=== PATIENT | female | born 1990 | race African-American/Black ===

== ENCOUNTER 2018-02-01 19:31 | Emergency (ER) | payer OTHER ==
[2018-02-01 20:23] VITALS: BP 115/66; PULSE 75; TEMP 98.2; BMI 30.5
--- NOTE | 2018-02-01 20:26 | PDOC ---
Rapid Medical Evaluation Time Seen by Provider: 02/01/18 19:36 Medical Evaluation: I have performed a brief in-person evaluation of this patient. The patient presents with a chief complaint of: atraumatic left wrist pain Pertinent physical exam findings: pain with palpation of left snuffbox. + finklestein test I have ordered the following: nothing. patient is 6 months . Needs thumb splint, ice and rest. Informed the patient there is little to be done for this problem. Gave her a thumb splint and LUISA bandage and instructed her to return to the ER with any worsening or concerning symptoms. The patient verbalizes understanding of all instructions, has no further questions and is awaiting discharge. Discharge Disposition - Diagnosis De Quervain's tenosynovitis, left - Discharge Dispostion Disposition: HOME Condition at time of disposition: Good - Referrals - Patient Instructions Printed Discharge Instructions: DI for Tenosynovitis, How To Perform RICE (Rest , Ice, Compress, Elevate) Additional Instructions: Discharge Instructions: -You have tendonitis of your wrist -Please ice the area to help with swelling and pain -Do not lift anything, including your children if you don't have to -You can take Tylenol for pain -Return to the ER with any worsening or concerning symptoms - Post Discharge Activity
== END 2018-02-01 20:41 | disposition home or self-care (01) ==
LOC: JERFT 19:31
DX: M65.4 Radial styloid tenosynovitis [de Quervain] (principal)
CPT/HCPCS: 99281-25

== ENCOUNTER 2018-02-28 11:12 | Emergency (ER) | payer OTHER ==
[2018-02-28 11:27] VITALS: BMI 31.2
--- NOTE | 2018-02-28 12:20 | PDOC ---
History of Present Illness - History of Present Illness Initial Comments: 02/28/18 12:35 The patient is a 28 year old female, Currently 8 months , with no significant past medical history, who presents to the emergency department with diffuse itching to her entire body starting about 4-3 days ago. She states she was seen at the [facility] at [facility] for the same symptoms where she had lab work done (bilirubin<0.2, AST 14, ALT 10, AlkPhos 89). She denies vaginal bleeding. She denies abdominal cramping. She denies any back pain. She denies taking anything for her itching. She denies chest pain, shortness of breath, headache and dizziness. She denies fever, chills, nausea, vomit, diarrhea and constipation. She denies dysuria, frequency, urgency and hematuria. Allergies: NKDA <Yaquelin Brown - Last Filed: 02/28/18 12:43> <Salomon Bravo - Last Filed: 02/28/18 12:58> - General Chief Complaint: Itching Stated Complaint: RASH Time Seen by Provider: 02/28/18 12:19 Past History <Yaquelin Brown - Last Filed: 02/28/18 12:43> - Past Medical History COPD: No - Suicide/Smoking/Psychosocial Hx Smoking History: Never smoked Have you smoked in the past 12 months: No Information on smoking cessation initiated: No Hx Alcohol Use: No Drug/Substance Use Hx: No Substance Use Type: None <Salomon Bravo - Last Filed: 02/28/18 12:58> - Past Medical History Allergies/Adverse Reactions: Allergies Allergy/AdvReac Type Severity Reaction Status Date / Time No Known Allergies Allergy Verified 02/28/18 11:27 Home Medications: Ambulatory Orders Vit 108/Iron/Folic AC [ One Tablet] 1 each PO DAILY 02/28/18 Review of Systems - Review of Systems Able to Perform ROS?: Yes Comments:: 02/28/18 12:34 CONSTITUTIONAL: No fever, no chills, no fatigue EYES: No visual changes ENT: No ear pain, no sore throat CARDIOVASCULAR: No chest pain, no palpitations RESPIRATORY: No cough, no SOB GI: No abdominal pain, no nausea, no vomiting, no constipation, no diarrhea GENITOURINARY: No dysuria, no frequency, no hematuria MUSKULOSKELETAL: No backpain, no joint pain, no myalgias SKIN: (+) diffuse body itching. No rash NEURO: No headache <Yaquelin Brown - Last Filed: 02/28/18 12:43> *Physical Exam - Vital Signs Last Vital Signs Temp Pulse Resp BP Pulse Ox 97.8 F 83 16 108/68 100 02/28/18 11:25 02/28/18 11:25 02/28/18 11:25 02/28/18 11:25 02/28/18 11:25 - Physical Exam Comments: 02/28/18 12:34 CONSTITUTIONAL: Well-appearing; well-nourished; in no apparent distress HEAD: Normocephalic; atraumatic EYES: PERRL; EOM intact ENMT: External appears normal; normal oropharynx NECK: Supple; non-tender; no cervical lymphadenopathy CARD: Normal S1, S2; no murmurs, rubs, or gallops RESP: Normal chest excursion with respiration; breath sounds clear and equal bilaterally; no wheezes, rhonchi, or rales ABD: (+) gravid abdomen above the umbilicus. Soft, non-distended; non-tender; no palpable organomegaly, no palpable hernias EXT: Normal ROM in all four extremities; non-tender to palpation; distal pulses intact SKIN: Warm, dry, no rash NEURO: No focal neurological deficiencies. <Yaquelin Brown - Last Filed: 02/28/18 12:43> - Vital Signs Last Vital Signs Temp Pulse Resp BP Pulse Ox 97.8 F 83 16 108/68 100 02/28/18 11:25 02/28/18 11:25 02/28/18 11:25 02/28/18 11:25 02/28/18 11:25 <Salomon Bravo - Last Filed: 02/28/18 12:58> Medical Decision Making - Medical Decision Making 02/28/18 12:39 Dr. Waters was paged at this time requesting a call back for doctor to doctor consult. Case discussed with Dr. Waters at 12:43 <Yaquelin Brown - Last Filed: 02/28/18 12:43> - Medical Decision Making 02/28/18 12:56 Patient is a 28-year-old female, at 8 months gestation by LMP who presents with generalized pruritus. Patient is well-appearing without fever, abdominal pain or lower extremity edema. Patient denies headache. Patient had been seen at [facility] and underwent laboratory evaluation which shows normal LFTs with pending bile salts. I discussed the case with Dr. Waters. We'll administer Benadryl , we'll advise Benadryl until bile salt results are available. Patient will be advised to follow-up as needed. <Salomon Bravo - Last Filed: 02/28/18 12:58> *DC/Admit/Observation/Transfer - Attestations Scribe Attestion: 02/28/18 12:38 Documentation prepared by Yaquelin Brown, acting as medical physics professor for Salomon Bravo MD <Yaquelin Brown - Last Filed: 02/28/18 12:43> - Attestations Physician Attestion: 02/28/18 12:55 The documentation was prepared by the scribe under my direct supervision. I have reviewed the documentation which correctly represents the findings, medical decision-making and critical action taken by me. <Salomon Bravo - Last Filed: 02/28/18 12:58> Diagnosis at time of Disposition: Generalized pruritus - Discharge Dispostion Disposition: HOME Condition at time of disposition: Stable - Referrals Referrals: Kaycee Waters MD [Staff Physician] - - Patient Instructions Printed Discharge Instructions: DI for Itching Additional Instructions: Take Benadryl-25 mg orally every 4 hours as needed for severe itching. Follow- up with [facility] for additional bile salt results. Return immediately for fever, abdominal pain, leg swelling, headache.
[2018-02-28] MEDS ORDERED: diphenhydrAMINE HCL 25 MG CAPSULE (FP) PO ONE ×2 (12:37→12:53)
[2018-02-28 13:13] VITALS: BP 104/67; PULSE 81; TEMP 98.1
== END 2018-02-28 13:13 | disposition home or self-care (01) ==
LOC: JER 11:12
DX: O26.893 Other specified pregnancy related conditions, third trimester (principal); Z3A.32 32 weeks gestation of pregnancy; L29.9 Pruritus, unspecified
CPT/HCPCS: 99283-25

== ENCOUNTER 2018-03-21 13:17 | Emergency (ER) | payer OTHER ==
[2018-03-21 13:27] VITALS: BP 109/59; PULSE 79; TEMP 98.4; BMI 29.2
[2018-03-21] MEDS ORDERED: ACETAMINOPHEN 325 MG TABLET (FP) PO ONE (13:48)
--- NOTE | 2018-03-21 13:52 | PDOC ---
History of Present Illness - General Chief Complaint: Head/Neck problem Stated Complaint: NECK PAIN Time Seen by Provider: 03/21/18 13:32 - History of Present Illness Initial Comments: 28-year-old 36-week-old gravid female presents for evaluation of left-sided neck pain. She denies any precipitating trauma. She describes the pain as sharp and exacerbated with motion of the neck relieved with rest and free of radiation. No problems like this in the past 03/21/18 13:47 Past History - Past Medical History Allergies/Adverse Reactions: Allergies Allergy/AdvReac Type Severity Reaction Status Date / Time No Known Allergies Allergy Verified 03/21/18 13:23 Home Medications: Ambulatory Orders NK [No Known Home Medication] 03/21/18 COPD: No Other medical history: denies. - Reproductive History (#): 3 Para: 2 Cervical CA: No Dysfunctional Uterine Bleeding: No Ectopic : No Endometrial CA: No Polycystic Ovaries: No Therapeutic (s) & number: No Tubal Ligation: No - Suicide/Smoking/Psychosocial Hx Smoking History: Never smoked Have you smoked in the past 12 months: No Hx Alcohol Use: No Drug/Substance Use Hx: No Substance Use Type: None Review of Systems - Review of Systems Comments:: GENERAL/CONSTITUTIONAL: [No fever or chills. No weakness. No weight change.] HEAD, EYES, EARS, NOSE AND THROAT: [No change in vision. No ear pain or discharge. No sore throat.] CARDIOVASCULAR: [No chest pain or shortness of breath.] RESPIRATORY: [No cough, wheezing, or hemoptysis.] GASTROINTESTINAL: [No nausea, vomiting, diarrhea or constipation. No rectal bleeding.] GENITOURINARY: [No dysuria, frequency, or change in urination.] MUSCULOSKELETAL: [No joint or muscle swelling or pain. + neck PAIN, NO back pain.] SKIN AND BREASTS: [No rash or easy bruising.] NEUROLOGIC: [No headache, vertigo, loss of consciousness, or loss of sensation.] PSYCHIATRIC: [No depression or anxiety.] ENDOCRINE: [No increased thirst. No abnormal weight change.] HEMATOLOGIC/LYMPHATIC: [No anemia, easy bleeding, or history of blood clots.] ALLERGIC/IMMUNOLOGIC: [No hives or skin allergy. No latex allergy.] 03/21/18 13:49 *Physical Exam - Vital Signs Last Vital Signs Temp Pulse Resp BP Pulse Ox 98.4 F 79 15 109/59 100 03/21/18 13:23 03/21/18 13:23 03/21/18 13:23 03/21/18 13:23 03/21/18 13:23 - Physical Exam Comments: Cervical spine skin color and temperature are normal. There is DECRASED painful range of motion. MILD LEFT SIDED palpable spasm. Biceps triceps and brachial radialis reflexes are 2+ and symmetric bilaterally. There is 5 out of 5 strength and thumb extension abduction and wrist flexion and extension elbow flexion and extension. 5 out of 5 strength in deltoid. Negative Henny sign. Spurling maneuver is negative bilaterally. There are no gross sensory motor deficits. Neurovascularly intact. 03/21/18 13:49 Medical Decision Making - Medical Decision Making Differential includes torticollis or cervical spine strain. 03/21/18 13:50 *DC/Admit/Observation/Transfer Diagnosis at time of Disposition: Torticollis, acute, Strain, cervical - Discharge Dispostion Disposition: HOME Condition at time of disposition: Stable Decision to Admit order: No - Referrals Referrals: Quang Clarke MD [Staff Physician] - - Patient Instructions Printed Discharge Instructions: DI for Cervical Muscle Strain, Torticollis, DI for Torticollis Additional Instructions: Return to the emergency room if symptoms worsen or go on resolve prior to follow up with orthopedic surgery. Due to her can only take Tylenol for pain. - Post Discharge Activity
[2018-03-21] MEDS ORDERED: ACETAMINOPHEN 325 MG TABLET (FP) ONE (13:53)
== END 2018-03-21 14:04 | disposition home or self-care (01) ==
LOC: JERFT 13:17
DX: G24.3 Spasmodic torticollis (principal)
CPT/HCPCS: 99281-25

== ENCOUNTER 2018-04-08 10:00 | Inpatient (IN) | payer OTHER ==
[2018-04-08] MEDS ORDERED: DINOPROSTONE 10 MG VAGINAL SUPPOSITORY VG ONE (10:40)
[2018-04-08 10:42] VITALS: BMI 27.4
[2018-04-08] MEDS ORDERED: SODIUM PHOSPHATE/NA BIPHOS 133 ML ENEMA PR ONE (10:43)
[2018-04-08] MEDS ORDERED: BUTORPHANOL TARTRATE 1 MG/ML VIAL IVPB ONE (10:45)
[2018-04-08] MEDS ORDERED: PROMETHAZINE HCL 25 MG/1 ML VIAL IVPUSH ONE (10:45)
[2018-04-08] MEDS ORDERED: DEXTROSE 5%-LACTATED RINGERS 1,000 ML IV SCH (10:45)
--- NOTE | 2018-04-08 10:53 | HP ---
Past Medical History - Primary Care Physician PCP:: Kaycee Waters - Admission Chief Complaint: 28 yrs , 40 .4 weeks IUP by EDC 04/04/18 ,is admitted for induction of labor . NST 04/07/18 cat-1 , Bpp 06/20 , EFW 3950 gm, afi12.4 cm , vx History of Present Illness: care at 2, park care at 29 wks transferred from [place] .wt gain 13 lbs In transfer records LMP mentioned is 06/20/17 & EDC as 03/25/18 . 10/20/17 O pos, hbsag neg, Rpr nr, Quantiferon neg,, Gct 71, Hgba1c 5.0 03/14/18 GBS neg , Hiv neg. 02/06/18 Zika virus testing neg 02/20/18 LFT were done alt 10, ast 14, bile acids -5, bile salts neg neg , Plt on 03/14/18-95, , repeat plt on 03/20/18 110h/h 10.5/32.1 . 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 Weeks Gestation by Dates: 40.4 ...EDC by Dates: 04/04/18 ...EDC by Sono: 04/04/18 Infectious Disease: No: HIV, STD's, Tuberculosis Psych: No: Addictions, Anxiety, Bipolar - Past Surgical History Past Surgical History: Yes: None Hx Myomectomy: No Hx Transabdominal Cerclage: No - Smoking History Smoking history: Never smoked Have you smoked in the past 12 months: No - Alcohol/Substance Use Hx Alcohol Use: No - Social History History of Recent Travel: Yes (travel from [facility] ) Home Medications - Allergies Allergies/Adverse Reactions: Allergies Allergy/AdvReac Type Severity Reaction Status Date / Time No Known Allergies Allergy Verified 04/07/18 12:54 - Home Medications Home Medications: Ambulatory Orders Diphenhydramine HCl [Benadryl -] 25 mg PO Q6H 04/07/18 Pnv No.95/Ferrous Fum/Folic AC [ Vitamin Tablet] 1 each PO DAILY Tablet 1 tablet PO DAILY 04/08/18 Physical Exam - Maternity Vital Signs: Vital Signs Temperature 98.3 F 04/08/18 10:31 Pulse Rate 84 04/08/18 10:31 Respiratory Rate 18 04/08/18 10:31 Blood Pressure 105/63 04/08/18 10:31 O2 Sat by Pulse Oximetry (%) Selected Entries 04/08/18 10:31 Weight 165 lb Constitutional: Yes: Well Nourished Eyes: Yes: WNL HENT: Yes: WNL Neck: Yes: WNL Cardiovascular: Yes: WNL Lungs: Clear to auscultation Breast(s): Yes: WNL - Abdominal Exam/OB Fundal Height: 40 Number of Fetuses: Single Presentation: Vertex Contractions: No Intensity: Mild/Mod Monitor Mode: External Heart Rate (range): 140 Heart Rate Location: [facility] Category: I Accelerations: Uniform Decelerations: None - Vaginal Exam/OB Vaginal Bleediing: No Speculum Exam: No Dilatation (cm): 1-2 Effacement (%): 60 Amniotic Membrane Status: Intact Presentation: Vertex/Position Station: -3 - Physical Exam Musculoskeletal: Yes: WNL Extremities: Yes: WNL. No: Calf Tenderness Edema: Yes Edema: LLE: 1+, RLE: 1+ Integumentary: Yes: WNL Deep Tendon Reflex Grade: Normal +2 ...Motor Strength: WNL Psychiatric: Yes: WNL, Alert, Oriented - Labs Lab Results: Laboratory Tests 04/08/18 04/08/18 04/08/18 11:10 11:10 11:10 WBC 6.2 Hgb 10.5 L Hct 31.9 L Plt Count 120 L Neutrophils % 65.7 Lymphocytes % 23.0 Monocytes % 7.5 PT with INR 12.60 INR 1.12 PTT (Actin FS) 27.2 Sodium 138 Potassium 3.6 Chloride 106 Carbon Dioxide 24 BUN 8 Creatinine 0.5 L Random Glucose 73 L Blood Type Antibody Screen 04/08/18 04/08/18 11:10 12:36 WBC Hgb Hct Plt Count Neutrophils % Lymphocytes % Monocytes % PT with INR INR PTT (Actin FS) Sodium Potassium Chloride Carbon Dioxide BUN Creatinine Random Glucose Blood Type O POSITIVE Antibody Screen Negative Problem List - Problems (1) Post term over 40 weeks Code(s): O48.0 - POST-TERM (2) Elective induction of labor planned Code(s): XGU0644 - Assessment/Plan 28 yrs , 40.4 weeks iup for induction of labor. GBS neg Cervidil inserted at 10.40 AM Plan trial vaginal delivery
[2018-04-08 11:29] LABS: BASO % 0.4 % (0-2.0); EOS % 3.4 % (0-4.5); HEMATOCRIT 31.9 % (32.4-45.2); HEMOGLOBIN 10.5 GM/dL (10.7-15.3); MCH 26.7 pg (25.7-33.7); MEAN CELL VOLUME 80.8 fl (80-96); MEAN PLT VOLUME 9.6 fl (7.5-11.1); MONO % 7.5 % (3.8-10.2); NEUT % 65.7 % (42.8-82.8); PLATELET COUNT 120 K/MM3 (134-434); RBC 3.94 M/mm3 (3.60-5.2); RDW 14.2 % (11.6-15.6); WHITE BLOOD COUNT 6.2 K/mm3 (4.0-10.0)
[2018-04-08 11:42] LABS: INR 1.12 (0.82-1.09); PROTHROMBIN TIME (PATIENT) 12.6 SEC (9.7-13.0)
[2018-04-08 11:45] LABS: ACTIVATED PTT 27.2 SECONDS (26.9-34.4)
[2018-04-08 11:49] LABS: ANION GAP 8 (8-16); BLOOD UREA NITROGEN 8 mg/dL (7-18); CHLORIDE 106 mmol/L (98-107); CO2 24 mmol/L (21-32); CREATININE 0.5 mg/dL (0.55-1.02); GLUCOSE,RANDOM 73 mg/dL (74-106); POTASSIUM 3.6 mmol/L (3.5-5.1); SODIUM 138 mmol/L (136-145)
--- NOTE | 2018-04-08 22:32 | PN ---
Progress Note (short form) - Note Progress Note: 10.15 PM cervidil removed uc are irregular q 3-5-7 min mild to moderate. FHR cat-1 requests for pain relief , epidural . cervidil removed Selected Entries 04/08/18 21:00 Pulse Rate 92 H Blood Pressure 122/74 Plan fleets enema shower epidural pitocin augmentaion Problem List - Problems (1) Post term over 40 weeks Code(s): O48.0 - POST-TERM (2) Elective induction of labor planned Code(s): GAP4181 -
[2018-04-08] MEDS ORDERED: ELECTROLYTE-148 SOLN 1,000 ML IV SCH (22:45)
[2018-04-08] MEDS ORDERED: OXYTOCIN 30 UNITS in 0.9% NS 30 UNIT/500 ML INFUS.BAG IVPB SCH (22:45)
--- NOTE | 2018-04-08 23:15 | PN ---
Progress Note, Labor Vaginal Exam #1 Labor Exam Date: 04/08/18 Labor Exam Time: 23:00 Heart Rate (range): 140 Dilatation: 4-5 Effacement (%): 80 Amniotic Membrane Status: Ruptured (AROM clear small amount, scalp electrode applied) Presentation: Vertex/Position Station: -3 (-3/-2) Remarks: FHR cat-1 uc 2-4 min Selected Entries 04/08/18 21:00 Pulse Rate 92 H Blood Pressure 122/74 Blood Pressure 90 Mean 23.30 epidural analgesia was given Vaginal Exam #2 Labor Exam Date: 04/09/18 Labor Exam Time: 01:30 Heart Rate (range): 140 Dilatation: 10 Effacement (%): 100 Amniotic Membrane Status: Ruptured Presentation: Vertex/Position Station: +3 Remarks: fhr cat-1 uc 2 min Pitocin augmentation at 11.20 am pt pushing Selected Entries 04/09/18 01:35 Pulse Rate 84 Blood Pressure 108/63
[2018-04-08] MEDS ORDERED: NALOXONE HCL 0.4 MG/ML VIAL IVPUSH PRN (23:38)
[2018-04-08] MEDS ORDERED: FENTANYL/BUPIVACAINE/NS/PF - PCEA - 50 ML DISP.SYRIN EP SCH (23:45)
[2018-04-09] MEDS: OXYTOCIN 20 UNITS in 0.9% NS 20 UNIT/1,000 ML INFUS.BAG IV SCH ×2 (01:45→12:00)
[2018-04-09] MEDS ORDERED: BENZOCAINE 28 GM HEMORRHOIDAL OINTMENT TP PRN (02:04)
[2018-04-09] MEDS ORDERED: WITCH HAZEL 50% (TUCKS) 40 PAD/JAR PAD TP PRN (02:04)
[2018-04-09] MEDS ORDERED: BISACODYL 10 MG SUPP.RECT RC PRN (02:04)
[2018-04-09] MEDS ORDERED: BENZOCAINE 20% 57 GM BOTTLE TP PRN (02:04)
[2018-04-09] MEDS ORDERED: oxyCODONE HCL 5 MG TABLET PO PRN (02:04)
[2018-04-09] MEDS ORDERED: METHYLERGONOVINE MALEATE 0.2 MG/1 ML AMP IM PRN (02:04)
--- NOTE | 2018-04-09 02:28 | PN ---
Delivery - Delivery Vaginal Delivery: No Problems, Spontaneous (baby delievered Vx , Sarah position, immediate oral & nasal suction was done.) Type of Anesthesia: Epidural Episiotomy/Laceration: Perineal Extension/lac (1st degree perineal laceration sutured with chr catgut #2/0), 1st degree EBL (cc): 300 Delivery, Single - Stages of Labor Date 1st Stage Initiatied: 04/08/18 Time 1st Stage Initiated: 17:30 Date 2nd Stage Initiated: 04/09/18 Time 2nd Stage Initiated: 01:30 Date of Delivery: 04/09/18 Time of Delivery: 01:41 Date Placenta Delivered: 04/09/18 Time Placenta Delivered: 01:45 Placenta: Yes: Spontaneous, Uterine Exploration - Condition of Infant 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 gbs neg pnc transferred from the clinic in [place] to [address] [place] [address] . 04/08/18 Cervidil was inserted for induction Intrapartum course uneventful
[2018-04-09] MEDS: IBUPROFEN 600 MG TABLET (FP) PO PRN ×4 (05:48→21:41)
[2018-04-09] MEDS: ACETAMINOPHEN 325 MG TABLET (FP) PO PRN ×4 (05:49→21:40)
[2018-04-09] MEDS: FERROUS SO4 325 MG TABLET (FP) PO SCH ×2 (08:51→17:10)
[2018-04-09] MEDS: PRENATAL VITAMINS W/ FOLIC ACID TABLET (FP) PO SCH (09:10)
--- NOTE | 2018-04-10 07:51 | PN ---
Post Progress Note - Subjective Subjective: cramps Post Day: 1 Type of Delivery: Vital Signs: Vital Signs Temperature 98.1 F 04/09/18 21:00 Pulse Rate 62 04/09/18 21:00 Respiratory Rate 20 04/09/18 21:00 Blood Pressure 91/47 04/09/18 21:00 O2 Sat by Pulse Oximetry (%) 99 04/09/18 02:45 Breast Exam: Yes: Soft, Other (Bf ). No: Engorged Uterus: Yes: Fundus Firm, Fundus below umbilicus Lochia: Yes: Rubra Lochia, amount: Moderate Extremities: Yes: Calves non-tender Perineum: Yes: Laceration (1st degree healing ) Activity: Ambulating - Labs Labs: CBC WBC 6.2 K/mm3 (4.0-10.0) 04/08/18 11:10 RBC 3.94 M/mm3 (3.60-5.2) 04/08/18 11:10 Hgb 10.5 GM/dL (10.7-15.3) L 04/08/18 11:10 Hct 31.9 % (32.4-45.2) L 04/08/18 11:10 MCV 80.8 fl (80-96) 04/08/18 11:10 MCH 26.7 pg (25.7-33.7) 04/08/18 11:10 MCHC 33.0 g/dl (32.0-36.0) 04/08/18 11:10 RDW 14.2 % (11.6-15.6) 04/08/18 11:10 Plt Count 120 K/MM3 (134-434) L 04/08/18 11:10 MPV 9.6 fl (7.5-11.1) 04/08/18 11:10 Neutrophils % 65.7 % (42.8-82.8) 04/08/18 11:10 Lymphocytes % 23.0 % (8-40) 04/08/18 11:10 Monocytes % 7.5 % (3.8-10.2) 04/08/18 11:10 Eosinophils % 3.4 % (0-4.5) 04/08/18 11:10 Basophils % 0.4 % (0-2.0) 04/08/18 11:10 Nucleated RBC % 0 % (0-0) 04/08/18 11:10 Problem List - Problems (1) Post term over 40 weeks Code(s): O48.0 - POST-TERM (2) Elective induction of labor planned Code(s): [id number] - Assessment/Plan stable ct pp care
[2018-04-10 08:01] LABS: BASO % 0.6 % (0-2.0); HEMATOCRIT 30.7 % (32.4-45.2); HEMOGLOBIN 10.2 GM/dL (10.7-15.3); LYMPH % 24.7 % (8-40); MCHC 33.3 g/dl (32.0-36.0); MEAN CELL VOLUME 81.1 fl (80-96); MEAN PLT VOLUME 9.6 fl (7.5-11.1); MONO % 5.7 % (3.8-10.2); PLATELET COUNT 104 K/MM3 (134-434); RBC 3.79 M/mm3 (3.60-5.2); RDW 14.4 % (11.6-15.6); WHITE BLOOD COUNT 7.8 K/mm3 (4.0-10.0)
[2018-04-10] MEDS: ACETAMINOPHEN 325 MG TABLET (FP) PO PRN ×2 (08:15→18:00)
[2018-04-10] MEDS: IBUPROFEN 600 MG TABLET (FP) PO PRN ×2 (08:15→18:01)
[2018-04-10] MEDS: FERROUS SO4 325 MG TABLET (FP) PO SCH ×2 (08:15→18:00)
[2018-04-10] MEDS: PRENATAL VITAMINS W/ FOLIC ACID TABLET (FP) PO SCH (09:16)
[2018-04-10] MEDS ORDERED: SENNOSIDES/DOCUSATE COMBO (SENNA PLUS) TABLET (UD) PO PRN (22:00)
[2018-04-11] MEDS: FERROUS SO4 325 MG TABLET (FP) PO SCH (08:21)
[2018-04-11] MEDS: IBUPROFEN 600 MG TABLET (FP) PO PRN (08:21)
[2018-04-11] MEDS: ACETAMINOPHEN 325 MG TABLET (FP) PO PRN (08:22)
--- NOTE | 2018-04-11 08:57 | DS ---
Physical Exam-[facility] Vital Signs: Vital Signs Temperature 98.4 F 04/10/18 20:24 Pulse Rate 65 04/10/18 20:24 Respiratory Rate 20 04/10/18 20:24 Blood Pressure 124/62 04/10/18 20:24 O2 Sat by Pulse Oximetry (%) 99 04/09/18 02:45 Constitutional: Yes: Well Nourished Eyes: Yes: WNL HENT: Yes: WNL Neck: Yes: WNL Cardiovascular: Yes: WNL Respiratory: Yes: WNL Gastrointestinal: Yes: WNL Renal/: Yes: WNL ....Post : Yes: Uterus firm, Uterus non-tender, Moderate lochia rubra ( perineum 1st degree laceration healed) Breast(s): Yes: WNL (BF, breast not engorged) Musculoskeletal: Yes: WNL Extremities: Yes: WNL Edema: Yes Integumentary: Yes: WNL Neurological: Yes: WNL ...Motor Strength: WNL Psychiatric: Yes: WNL Labs: CBC, BMP 04/10/18 07:30 04/08/18 11:10 Delivery - Delivery Vaginal Delivery: No Problems, Spontaneous (baby delievered Vx , [place] position, immediate oral & nasal suction was done.) Type of Anesthesia: Epidural Episiotomy/Laceration: Perineal Extension/lac (1st degree perineal laceration sutured with chr catgut #2/0), 1st degree EBL (cc): 300 Delivery, Single - Stages of Labor Date 1st Stage Initiatied: 04/08/18 Time 1st Stage Initiated: 17:30 Date 2nd Stage Initiated: 04/09/18 Time 2nd Stage Initiated: 01:30 Date of Delivery: 04/09/18 Time of Delivery: 01:41 Time Placenta Delivered: 01:45 Placenta: Yes: Spontaneous, Uterine Exploration - Condition of 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 gbs neg pnc transferred from the clinic in [place] to [address] [place] [address] . 04/08/18 Cervidil was inserted for induction Intrapartum course uneventful pp course uneventful anemia counselled discharge today Discharge Summary Reason For Visit: LABOR Current Active Problems Anemia (Acute) Elective induction of labor planned (Acute) Normal spontaneous vaginal delivery (Acute) Post term over 40 weeks (Acute) Condition: Stable - Instructions Diet, Activity, Other Instructions: Post Instructions DIET: Continue good diet high in protein, calcium, and iron rich foods. Drink at least eight (8) glasses of water daily in addition to other fluids. ___ Regular diet MEDICATIONS: Continue vitamins and iron as previously directed. Motrin and Tylenol may be taken for minor discomfort. ACTIVITY: Mild to moderate exercise may be started in two (2) weeks. Take frequent rest periods. Resume normal activity after six (6) week check up. WOUND CARE OF OPERATIVE SITE: Continue use of perineal bottle until vaginal discharge stops. Keep area clean. Shower daily. Keep abdominal wound dry. Report any drainage or redness to physician. Tub baths, tampons and douches are not permitted for [address] Breast feeding & or Bottle feeding BREAST CARE: (For those that are not breast feeding): If engorgement occurs: Wear tight fitting bra. Take Tylenol or Motrin for pain. Apply cold packs (ice in bags to each breast ) FAMILY PLANNING: There are many control alternatives to pursue and they should be discussed at your first office visit. You may resume sexual activity after your six (6) week check up. (Remember, breast feeding is not a contraceptive) NEXT PHYSICIAN APPOINTMENT: Be certain to call for a six (6) week appointment, unless otherwise directed. Call Clinic or got to Emergency Dept if you have any of the following: Heavy vaginal bleeding Painful urination Leg pain Unusual odor noted to vaginal bleeding High fever Red streaking noted on breast Referrals: Kaycee Waters MD [Staff Physician] - Disposition: HOME - Home Medications Comprehensive Discharge Medication List: Ambulatory Orders Pnv No.95/Ferrous Fum/Folic AC [ Vitamin Tablet] 1 each PO DAILY Tablet 1 tablet PO DAILY 04/08/18 Acetaminophen [Tylenol .Regular Strength -] 650 mg PO Q3H PRN tablet 04/10/18 Ferrous Sulfate [Feosol] 325 mg PO BIDWM #60 ud 04/10/18 Ibuprofen [Motrin -] 200 mg PO Q4H PRN tablet 04/10/18 Vitamins (Sjr) - 1 tab PO DAILY #30 tablet 04/10/18
[2018-04-11 09:42] VITALS: BP 109/68; PULSE 77; TEMP 98.5
[2018-04-11] MEDS: PRENATAL VITAMINS W/ FOLIC ACID TABLET (FP) PO SCH (10:53)
== END 2018-04-11 13:00 | disposition home or self-care (01) | DRG 560 ==
LOC: JLDR 10:00 → J3W 04-09 04:00
PROVIDERS: ADMIT Obstetrics & Gynecology; ATTEND Obstetrics & Gynecology
PROC: 3E0P7VZ Introduction of Hormone into Female Reproductive, Via Natural or Artificial Opening (ICD-10-PCS; 2018-04-08)
PROC: 10E0XZZ Delivery of Products of Conception, External Approach (ICD-10-PCS; principal; 2018-04-09)
PROC: 0W8NXZZ Division of Female Perineum, External Approach (ICD-10-PCS; 2018-04-09)
PROC: 0HQ9XZZ Repair Perineum Skin, External Approach (ICD-10-PCS; 2018-04-09)
DX: O70.0 First degree perineal laceration during delivery (principal); O48.0 Post-term pregnancy; O99.02 Anemia complicating childbirth; Z3A.40 40 weeks gestation of pregnancy; Z37.0 Single live birth
CPT/HCPCS: 36415; 59409; 80048; 85025; 85610; 85730; 86593; 86850; 86900; 86901

== ENCOUNTER 2019-01-01 12:27 | Emergency (ER) | payer OTHER ==
[2019-01-01 13:00] VITALS: BMI 22.8
--- NOTE | 2019-01-01 13:08 | PDOC ---
History of Present Illness - General History Source: Patient <Adrien Field - Last Filed: 01/01/19 15:04> <Sandy Kirk - Last Filed: 01/01/19 16:04> - General Chief Complaint: Back Pain Stated Complaint: FALL Time Seen by Provider: 01/01/19 12:58 Past History - Past Medical History Asthma: No Cancer: No Cardiac Disorders: No COPD: No Diabetes: No HTN: No Seizures: No Thyroid Disease: No - Reproductive History (#): 3 Para: 2 Cervical CA: No Dysfunctional Uterine Bleeding: No Ectopic : No Endometrial CA: No Polycystic Ovaries: No Therapeutic (s) & number: No Tubal Ligation: No - Suicide/Smoking/Psychosocial Hx Smoking History: Never smoked Have you smoked in the past 12 months: No Hx Alcohol Use: No Drug/Substance Use Hx: No Substance Use Type: None Hx Substance Use Treatment: No <Adrien Field Last Filed: 01/01/19 15:04> <Sandy Kirk - Last Filed: 01/01/19 16:04> - Past Medical History Allergies/Adverse Reactions: Allergies Allergy/AdvReac Type Severity Reaction Status Date / Time No Known Allergies Allergy Verified 01/01/19 12:44 Home Medications: Ambulatory Orders Amoxicillin - [Amoxicillin 875mg Tablet -] 875 mg PO BID #14 tab 01/01/19 Review of Systems - Review of Systems Constitutional: Yes: Chills, Fever, Malaise HEENTM: Yes: Throat Pain Respiratory: No: Cough, Shortness of Breath ABD/GI: No: Diarrhea, Nausea, Vomiting, Abdominal cramping : No: Dysuria Musculoskeletal: Yes: Back Pain <Adrien Field Last Filed: 01/01/19 15:04> *Physical Exam - Vital Signs Last Vital Signs Temp Pulse Resp BP Pulse Ox 102.1 F H 114 H 20 98/60 99 01/01/19 12:45 01/01/19 12:45 01/01/19 12:45 01/01/19 12:45 01/01/19 12:45 - Physical Exam General Appearance: Yes: Appropriately Dressed. No: Apparent Distress HEENT: positive: Normal ENT Inspection, Pharynx Normal. negative: Scleral Icterus (R), Scleral Icterus (L) Neck: positive: Supple. negative: Lymphadenopathy (R), Lymphadenopathy (L) Respiratory/Chest: positive: Lungs Clear, Normal Breath Sounds. negative: Respiratory Distress Cardiovascular: positive: S1, S2, Tachycardia Gastrointestinal/Abdominal: positive: Soft. negative: Tender Musculoskeletal: negative: CVA Tenderness, Vertebral Tenderness Extremity: positive: Normal Inspection Integumentary: positive: Dry, Warm Neurologic: positive: Fully Oriented, Alert, Normal Mood/Affect <Adrien Field - Last Filed: 01/01/19 15:04> - Vital Signs Last Vital Signs Temp Pulse Resp BP Pulse Ox 98.6 F 92 H 17 105/62 99 01/01/19 15:05 01/01/19 15:05 01/01/19 15:05 01/01/19 15:05 01/01/19 15:05 <Sandy Kirk - Last Filed: 01/01/19 16:04> Moderate Sedation - Procedure Monitoring Vital Signs: Procedure Monitoring Vital Signs Temperature 102.1 F H 01/01/19 12:45 Pulse Rate 114 H 01/01/19 12:45 Respiratory Rate 20 01/01/19 12:45 Blood Pressure 98/60 01/01/19 12:45 O2 Sat by Pulse Oximetry (%) 99 01/01/19 12:45 <Adrien Field Last Filed: 01/01/19 15:04> - Procedure Monitoring Vital Signs: Procedure Monitoring Vital Signs Temperature 98.6 F 01/01/19 15:05 Pulse Rate 92 H 01/01/19 15:05 Respiratory Rate 17 01/01/19 15:05 Blood Pressure 105/62 01/01/19 15:05 O2 Sat by Pulse Oximetry (%) 99 01/01/19 15:05 <Sandy Kirk - Last Filed: 01/01/19 16:04> ED Treatment Course - LABORATORY CBC & Chemistry Diagram: 01/01/19 13:27 01/01/19 13:27 <Adrien Field - Last Filed: 01/01/19 15:04> - LABORATORY CBC & Chemistry Diagram: 01/01/19 13:27 01/01/19 13:27 - ADDITIONAL ORDERS Additional order review: Laboratory Results 01/01/19 01/01/19 13:27 13:27 Sodium 139 Potassium 4.0 Chloride 103 Carbon Dioxide 29 Anion Gap 7 L BUN 10 Creatinine 0.7 Creat Clearance w eGFR > 60 Random Glucose 88 Calcium 8.8 Total Bilirubin 0.3 AST 19 ALT 30 Alkaline Phosphatase 106 Total Protein 8.3 H Albumin 4.3 Serum , Qual Negative 01/01/19 13:27 RBC 5.02 MCV 78.7 L MCHC 33.7 RDW 14.0 MPV 10.4 Neutrophils % 85.4 H D Lymphocytes % 8.2 D Monocytes % 4.6 Eosinophils % 1.4 Basophils % 0.4 - Medications Given in the ED: ED Medications Discontinued Medications Generic Name Dose Route Start Last Admin Trade Name Freq PRN Reason Stop Dose Admin Acetaminophen 650 mg 01/01/19 13:19 01/01/19 13:30 Tylenol - PO 01/01/19 13:20 650 mg ONCE ONE Administration Amoxicillin 500 mg 01/01/19 14:08 01/01/19 15:00 Amoxicillin - PO 01/01/19 14:09 500 mg ONCE ONE Administration Sodium Chloride 1,000 mls @ 1,000 mls/hr 01/01/19 13:19 01/01/19 13:30 Normal Saline - IV 01/01/19 14:18 1,000 mls/hr ASDIR STA Administration <Sandy Kirk - Last Filed: 01/01/19 16:04> Medical Decision Making - Medical Decision Making 01/01/19 13:08 28 yo F, here w/ fever w/ body aches, sneezing and sore throat x 2 days. No neck pain, LOPEZ, photophobia, rash, cough, SOB, CP, change in BM, dysuria, abd pain, n/v. No sick contacts or recent travel. Pt also reports ongoing back pain s/p minor fall 1 week ago. Seen by her pmd and prescribed pain meds w/ no relief per pt. Requesting xrays spine. See exam Viral syndrome, r/o flu Elsa uncomfortable w/ temp of 102 F w/ tachy to 114, rest of exam unremarkable -tylenol -IVF -labs -reassess 01/01/19 14:43 + strep. Flu/labs wnl. No fx on spinal XR. Rpt vitals improved. Given 1st dose abx here. Will dc w/ rx. PMD f/u as needed <Adrien Field - Last Filed: 01/01/19 15:04> *DC/Admit/Observation/Transfer <Jayda FieldKarin - Last Filed: 01/01/19 15:04> - Attestations Physician Attestion: I reviewed the case with the mid-level practitioner and agree with the mid- level practitioner's assessment, diagnosis and disposition. <Sandy Kirk - Last Filed: 01/01/19 16:04> Diagnosis at time of Disposition: Strep pharyngitis - Discharge Dispostion Disposition: HOME Condition at time of disposition: Improved - Prescriptions Prescriptions: Amoxicillin - [Amoxicillin 875mg Tablet -] 875 mg PO BID #14 tab - Patient Instructions Printed Discharge Instructions: Strep Throat Additional Instructions: You have strep throat. Take antibiotics as prescribed and take Tylenol or Motrin as needed for pain and/or fever. Follow-up with your doctor as needed - Post Discharge Activity Forms/Work/School Notes: Back to Work
[2019-01-01] MEDS ORDERED: ACETAMINOPHEN 325 MG TABLET (FP) PO ONE (13:19)
[2019-01-01] MEDS ORDERED: SODIUM CHLORIDE 1,000 ML IV STA (13:19)
[2019-01-01] MEDS ORDERED: ACETAMINOPHEN 325 MG TABLET (FP) ONE (13:25)
[2019-01-01 13:33] LABS: BASO % 0.4 % (0-2.0); EOS % 1.4 % (0-4.5); HEMATOCRIT 39.4 % (32.4-45.2); HEMOGLOBIN 13.3 GM/dL (10.7-15.3); LYMPH % 8.2 % (8-40); MCH 26.5 pg (25.7-33.7); MCHC 33.7 g/dl (32.0-36.0); MEAN CELL VOLUME 78.7 fl (80-96); MEAN PLT VOLUME 10.4 fl (7.5-11.1); MONO % 4.6 % (3.8-10.2); NEUT % 85.4 % (42.8-82.8); PLATELET COUNT 130 K/MM3 (134-434); RBC 5.02 M/mm3 (3.60-5.2); WHITE BLOOD COUNT 8.6 K/mm3 (4.0-10.0)
[2019-01-01 13:54] LABS: ALBUMIN 4.3 g/dl (3.4-5.0); ALK PHOS 106 U/L (45-117); ANION GAP 7 MMOL/L (8-16); BILIRUBIN,TOTAL 0.3 mg/dL (0.2-1); BLOOD UREA NITROGEN 10 mg/dL (7-18); CALCIUM 8.8 mg/dL (8.5-10.1); CHLORIDE 103 mmol/L (98-107); CO2 29 mmol/L (21-32); CREATININE 0.7 mg/dL (0.55-1.3); GLUCOSE,RANDOM 88 mg/dL (74-106); SGOT/AST 19 U/L (15-37); SGPT/ALT 30 U/L (13-61); SODIUM 139 mmol/L (136-145); TOT PROT 8.3 g/dl (6.4-8.2)
[2019-01-01] MEDS ORDERED: AMOXICILLIN 500 MG CAPSULE (FP) PO ONE (14:08)
[2019-01-01] MEDS ORDERED: AMOXICILLIN 500 MG CAPSULE (FP) ONE (14:59)
[2019-01-01 15:06] VITALS: BP 105/62; PULSE 92; TEMP 98.6
== END 2019-01-01 15:06 | disposition home or self-care (01) ==
LOC: JER 12:27
DX: J02.0 Streptococcal pharyngitis (principal); B95.0 Streptococcus, group A, as the cause of diseases classified elsewhere
CPT/HCPCS: 36415; 72070-TC-FY; 72100-TC-FY; 80053; 84703; 85025; 87804; 87880; 99282-25; J7030

== ENCOUNTER 2021-06-05 08:35 | Emergency (ER) | payer OTHER ==
[2021-06-05 08:51] VITALS: BP 103/63; PULSE 72; TEMP 97.5; BMI 23.8
[2021-06-05] MEDS ORDERED: IBUPROFEN 600 MG TABLET (FP) PO ONE ×3 (09:27→09:37)
[2021-06-05] MEDS ORDERED: DEXAMETHASONE SOD PHOSPHATE 10 MG/1 ML VIAL IM ONE (09:47)
[2021-06-05] MEDS ORDERED: DEXAMETHASONE SOD PHOSPHATE 10 MG/1 ML VIAL ONE (09:48)
== END 2021-06-05 10:14 | disposition home or self-care (01) ==
LOC: JER 08:35
PROC: 3E023NZ Introduction of Analgesics, Hypnotics, Sedatives into Muscle, Percutaneous Approach (ICD-10-PCS; principal; 2021-06-05)
DX: R07.0 Pain in throat (principal)
CPT/HCPCS: 70360-TC-FY; 87880; 96372; 99284-25; C9803; J1100; U0003; U0005

== ENCOUNTER 2022-02-15 16:29 | Emergency (ER) | payer OTHER ==
[2022-02-15 17:09] VITALS: BP 103/62; TEMP 98; BMI 25.4
[2022-02-15 17:16] VITALS: PULSE 74
[2022-02-15] MEDS ORDERED: KETOROLAC TROMETHAMINE 30 MG/1 ML VIAL IM ONE (18:18)
[2022-02-15] MEDS ORDERED: KETOROLAC TROMETHAMINE 30 MG/1 ML VIAL ONE (18:25)
== END 2022-02-15 20:47 | disposition home or self-care (01) ==
LOC: JERFT 16:29 → JER 16:29 → JERFT 20:47
PROC: 3E0233Z Introduction of Anti-inflammatory into Muscle, Percutaneous Approach (ICD-10-PCS; principal; 2022-02-15)
DX: M25.552 Pain in left hip (principal)
CPT/HCPCS: 72170-TC-FY; 73521-TC-FY; 99284-25

== ENCOUNTER 2022-05-21 07:31 | Emergency (ER) | payer OTHER ==
[2022-05-21 07:58] VITALS: BP 104/67; PULSE 77; TEMP 97.9; BMI 25.0
[2022-05-21 09:26] LABS: BASO % 0.5 % (0-2.0); EOS % 2.8 % (0-4.5); HEMATOCRIT 37.8 % (32.4-45.2); HEMOGLOBIN 12.5 GM/dL (10.7-15.3); LYMPH % 39.7 % (8-40); MCHC 33.1 g/dl (32.0-36.0); MEAN CELL VOLUME 78.5 fl (80-96); MEAN PLT VOLUME 9.6 fl (7.5-11.1); MONO % 6.7 % (3.8-10.2); NEUT % 50.3 % (42.8-82.8); PLATELET COUNT 132 10^3/uL (134-434); RBC 4.81 M/mm3 (3.60-5.2); RDW 13.4 % (11.6-15.6); WHITE BLOOD COUNT 4.6 K/mm3 (4.0-10.0)
[2022-05-21 09:29] LABS: EPI CELLS >36 /uL (0-25.1); HYALINE CASTS 2 /uL (0-3.1); PH,URINE 8.5 (5.0-8.0); URINE APPEARANCE CLEAR; URINE BACTERIA 584 /uL (0-1359); URINE BILIRUBIN NEGATIVE (NEGATIVE); URINE COLOR YELLOW; URINE GLUCOSE (UA) NEGATIVE (NEGATIVE); URINE KETONE NEGATIVE (NEGATIVE); URINE LEUK ESTERASE 2+ (NEGATIVE); URINE NITRITE NEGATIVE (NEGATIVE); URINE PROTEIN NEGATIVE (NEGATIVE); URINE RBC 1 /uL (0-23.9); URINE UROBILINOGEN 0.2 mg/dL (0.2-1.0); URINE WBC 69 /uL (0-25.8)
[2022-05-21] MEDS ORDERED: FLUCONAZOLE 150 MG TABLET PO ONE ×2 (09:39→09:45)
[2022-05-21 09:47] LABS: ALBUMIN 3.9 g/dl (3.4-5.0)
[2022-05-21 09:50] LABS: CREATININE 0.6 mg/dL (0.55-1.3)
[2022-05-21 09:51] LABS: TOT PROT 7.9 g/dl (6.4-8.2)
[2022-05-21 09:53] LABS: BILIRUBIN,TOTAL 0.6 mg/dL (0.2-1)
[2022-05-21] MEDS ORDERED: FAMOTIDINE 20 MG/50 ML IVPB 20 MG/50 ML MG IVPB ONE ×2 (10:56→11:26)
[2022-05-21] MEDS ORDERED: MAG HYDROX/AL HYDROX/SIMETH 30 ML UNIT-DOSE CUP PO ONE (10:57)
[2022-05-21] MEDS ORDERED: MAG HYDROX/AL HYDROX/SIMETH 30 ML UNIT-DOSE CUP ONE (11:26)
[2022-05-21 11:51] LABS: PH,URINE 7.5 (5.0-8.0); URINE APPEARANCE CLEAR; URINE BILIRUBIN NEGATIVE (NEGATIVE); URINE COLOR YELLOW; URINE GLUCOSE (UA) NEGATIVE (NEGATIVE); URINE KETONE NEGATIVE (NEGATIVE); URINE LEUK ESTERASE NEGATIVE (NEGATIVE); URINE NITRITE NEGATIVE (NEGATIVE); URINE PROTEIN NEGATIVE (NEGATIVE); URINE UROBILINOGEN 0.2 mg/dL (0.2-1.0)
== END 2022-05-21 12:22 | disposition home or self-care (01) ==
LOC: JER 07:31
PROC: 3E033NZ Introduction of Analgesics, Hypnotics, Sedatives into Peripheral Vein, Percutaneous Approach (ICD-10-PCS; principal; 2022-05-21)
DX: B37.3 Candidiasis of vulva and vagina (principal)
CPT/HCPCS: 36415; 76705-TC; 80053; 80061; 81003; 83690; 84703; 85025; 87086; 87491; 87591; 96365; 99284-25

== ENCOUNTER 2023-11-26 06:02 | Emergency (ER) | payer OTHER ==
[2023-11-26 06:08] VITALS: BP 104/65; PULSE 70; RESP 18; TEMP 98.6; BMI 25.7
[2023-11-26] MEDS ORDERED: ACETAMINOPHEN 325 MG TABLET (FP) PO ONE (07:56)
[2023-11-26] MEDS ORDERED: ACETAMINOPHEN 325 MG TABLET (FP) ONE (08:35)
[2023-11-26 08:48] LABS: BASO % 0.9 % (0-2.0); EOS % 3.1 % (0-4.5); HEMATOCRIT 38.2 % (32.4-45.2); HEMOGLOBIN 12.2 GM/dL (10.7-15.3); MCH 25.6 pg (25.7-33.7); MCHC 31.8 g/dl (32.0-36.0); MEAN CELL VOLUME 80.4 fl (80-96); MEAN PLT VOLUME 10.7 fl (7.5-11.1); MONO % 5.8 % (3.8-10.2); NEUT % 56.2 % (42.8-82.8); PLATELET COUNT 131 10^3/uL (134-434); RBC 4.75 M/mm3 (3.60-5.2); WHITE BLOOD COUNT 4.4 K/mm3 (4.0-10.0)
[2023-11-26 08:51] LABS: EPI CELLS 9 /uL (0-25.1); HYALINE CASTS 0 /uL (0-3.1); URINE APPEARANCE CLEAR; URINE BACTERIA 63 /uL (0-1359); URINE BILIRUBIN NEGATIVE (NEGATIVE); URINE COLOR YELLOW; URINE GLUCOSE (UA) NEGATIVE (NEGATIVE); URINE KETONE NEGATIVE (NEGATIVE); URINE LEUK ESTERASE TRACE (NEGATIVE); URINE NITRITE NEGATIVE (NEGATIVE); URINE PROTEIN NEGATIVE (NEGATIVE); URINE RBC 29 /uL (0-23.9); URINE UROBILINOGEN 0.2 mg/dL (0.2-1.0); URINE WBC 7 /uL (0-25.8)
[2023-11-26 08:53] LABS: HCG,QUALITATIVE URINE Positive
[2023-11-26 09:04] LABS: INR 1.18 (0.83-1.09); PROTHROMBIN TIME (PATIENT) 13.7 SEC (9.7-13.0)
[2023-11-26 09:07] LABS: ACTIVATED PTT 30.5 SECONDS (25.2-36.5)
[2023-11-26 09:13] LABS: POTASSIUM 3.9 mmol/L (3.5-5.1)
[2023-11-26 09:15] LABS: ALBUMIN 4.2 g/dl (3.4-5.0); BLOOD UREA NITROGEN 7.2 mg/dL (7-18); CALCIUM 9.5 mg/dL (8.5-10.1)
[2023-11-26 09:19] LABS: CREATININE 0.6 mg/dL (0.55-1.3)
[2023-11-26 09:20] LABS: TOT PROT 7.9 g/dl (6.4-8.2)
[2023-11-26 09:22] LABS: BILIRUBIN,TOTAL 0.2 mg/dL (0.2-1)
== END 2023-11-26 14:43 | disposition home or self-care (01) ==
LOC: JER 06:02
DX: O03.9 Complete or unspecified spontaneous abortion without complication (principal); Z20.822 Contact with and (suspected) exposure to COVID-19
CPT/HCPCS: 0241U-QW; 36415; 76817-TC; 80053; 81003; 84702; 84703; 85025; 85610; 85730; 86850; 86900; 86901; 87086; 87491; 87591; 87661; 99284-25

== ENCOUNTER 2024-11-15 01:20 | Inpatient (IN) | payer OTHER ==
[2024-11-15] MEDS: ELECTROLYTE-148 SOLN 500 ML IV ONE (03:00)
[2024-11-15 03:12] LABS: BASO % 0.3 % (0-2.0); EOS % 1.7 % (0-4.5); HEMATOCRIT 33.9 % (32.4-45.2); HEMOGLOBIN 11.1 GM/dL (10.7-15.3); LYMPH % 19.1 % (8-40); MCH 26.4 pg (25.7-33.7); MCHC 32.9 g/dl (32.0-36.0); MEAN CELL VOLUME 80.3 fl (80-96); MEAN PLT VOLUME 9.8 fl (7.5-11.1); MONO % 7.1 % (3.8-10.2); NEUT % 71.8 % (42.8-82.8); PLATELET COUNT 104 10^3/uL (134-434); RBC 4.22 M/mm3 (3.60-5.2); RDW 14.3 % (11.6-15.6)
[2024-11-15 03:30] LABS: POTASSIUM 3.8 mmol/L (3.5-5.1)
[2024-11-15 03:31] LABS: BLOOD UREA NITROGEN 8.5 mg/dL (7-18); CALCIUM 8.5 mg/dL (8.5-10.1)
[2024-11-15 03:35] VITALS: BMI 31.9
[2024-11-15 03:35] LABS: CREATININE 0.5 mg/dL (0.55-1.3)
[2024-11-15 03:37] LABS: INR 1.04 (0.83-1.09); PROTHROMBIN TIME (PATIENT) 11.7 SEC (9.7-13.0)
[2024-11-15 03:40] LABS: ACTIVATED PTT 28.8 SECONDS (25.2-36.5)
[2024-11-15] MEDS: ELECTROLYTE-148 SOLN 1,000 ML IV SCH (04:00)
[2024-11-15] MEDS ORDERED: OXYTOCIN 20 UNITS in 0.9% NS 20 UNIT/1,000 ML INFUS.BAG IV ONE ×2 (04:51→08:01)
[2024-11-15] MEDS ORDERED: LIDOCAINE HCL 1% PRESERVATIVE FREE - 30ML VIAL ONE (04:51)
[2024-11-15] MEDS: OXYTOCIN 20 UNITS in 0.9% NS 20 UNIT/1,000 ML INFUS.BAG IV SCH (05:28)
[2024-11-15] MEDS ORDERED: oxyCODONE HCL 5 MG TABLET PO PRN (05:46)
[2024-11-15] MEDS ORDERED: BISACODYL 10 MG SUPP.RECT RC PRN (05:46)
[2024-11-15] MEDS ORDERED: WITCH HAZEL 50% (TUCKS) 40 PAD/JAR PAD TP PRN (05:46)
[2024-11-15] MEDS ORDERED: BENZOCAINE 20% 57 GM BOTTLE TP PRN (05:46)
[2024-11-15] MEDS ORDERED: METHYLERGONOVINE MALEATE 0.2 MG/1 ML AMP IM PRN (05:46)
[2024-11-15] MEDS ORDERED: BENZOCAINE 28 GM HEMORRHOIDAL OINTMENT TP PRN (05:46)
[2024-11-15 06:30] LABS: CORD BASE EXCESS -1.9 mmol/L (0-2); CORD BASE EXCESS -2.8 mmol/L (0-2); CORD HCO3 23.3 mmHg (20-29); CORD HCO3 25.2 mmHg (20-29); CORD PCO2 41.4 mmHg (30-78); CORD PCO2 56.2 mmHg (30-78); CORD pH 7.269 (7.14-7.44); CORD pH 7.369 (7.14-7.44)
[2024-11-15] MEDS ORDERED: ACETAMINOPHEN 325 MG TABLET (FP) ONE (06:32)
[2024-11-15] MEDS: ACETAMINOPHEN 325 MG TABLET (FP) PO PRN (06:35)
[2024-11-15] MEDS ORDERED: IBUPROFEN 600 MG TABLET (FP) PO ONE (07:27)
[2024-11-15] MEDS ORDERED: FERROUS SO4 325 MG TABLET (FP) ONE (07:29)
[2024-11-15] MEDS: FERROUS SO4 325 MG TABLET (FP) PO SCH (07:30)
[2024-11-15] MEDS: IBUPROFEN 600 MG TABLET (FP) PO PRN (07:30)
[2024-11-15] MEDS: PRENATAL VITAMINS W/ FOLIC ACID TABLET (FP) PO SCH (09:46)
[2024-11-16 07:08] LABS: BASO % 0.4 % (0-2.0); EOS % 1.5 % (0-4.5); HEMATOCRIT 38.2 % (32.4-45.2); HEMOGLOBIN 12.5 GM/dL (10.7-15.3); LYMPH % 19.1 % (8-40); MCH 26.4 pg (25.7-33.7); MCHC 32.8 g/dl (32.0-36.0); MEAN CELL VOLUME 80.6 fl (80-96); MEAN PLT VOLUME 10.2 fl (7.5-11.1); MONO % 6.2 % (3.8-10.2); NEUT % 72.8 % (42.8-82.8); PLATELET COUNT 122 10^3/uL (134-434); RBC 4.74 M/mm3 (3.60-5.2); RDW 14.4 % (11.6-15.6); WHITE BLOOD COUNT 8.2 K/mm3 (4.0-10.0)
[2024-11-16] MEDS: guaiFENesin/D-METHORPHAN HB 10 ML UNIT-DOSE CUPS PO PRN (17:20)
[2024-11-16] MEDS ORDERED: SENNOSIDES/DOCUSATE COMBO (SENNA PLUS) TABLET (UD) PO PRN (22:00)
[2024-11-16 22:07] VITALS: RESP 18
[2024-11-17 10:00] VITALS: BP 113/75; PULSE 85; TEMP 98.4
== END 2024-11-17 13:25 | disposition home or self-care (01) | DRG 560 ==
LOC: JDEL 01:20 → JLDR 02:20 → J3W 09:10
PROVIDERS: ADMIT Obstetrics & Gynecology; ATTEND Obstetrics & Gynecology
PROC: 10E0XZZ Delivery of Products of Conception, External Approach (ICD-10-PCS; principal; 2024-11-15)
DX: O99.824 Streptococcus B carrier state complicating childbirth (principal); Z3A.40 40 weeks gestation of pregnancy; Z37.0 Single live birth
CPT/HCPCS: 0241U-QW; 36415; 36600; 59025; 59409; 80048; 82803; 85025; 85610; 85730; 86780; 86850; 86900; 86901